=== PATIENT | male | born 1955 | race Caucasian/White ===

== ENCOUNTER 2016-11-04 17:28 | Inpatient (IN) | payer OTHER ==
[2016-11-04 17:52] LABS: Glucose,Whole Blood 206 mg/dL (75-99)
[2016-11-04] MEDS ORDERED: NALOXONE 0.4 MG/ML 1 ML VIAL IM STA (17:59)
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
--- NOTE | 2016-11-04 19:22 | CT ---
EXAMINATION TYPE: CT brain wo con DATE OF EXAM: 11/04/2016 7:09 PM HISTORY: Altered mental status. CT DLP: 1260.00 mGycm. Automated Exposure Control for Dose Reduction was Utilized. TECHNIQUE: CT scan of the head is performed without contrast. COMPARISON: None. FINDINGS: Some motion artifact seen making evaluation slightly suboptimal There is no acute intracra nial hemorrhage or midline shift identified. There is diffuse ventricular and sulcal prominence consi stent with diffuse age-related cerebral atrophy. Old infarcts inferior bilateral frontal lobes are no sandoval. There is small mucous retention cyst or polyp inferiorly in right maxillary sinus on axial image 2. The globes are intact and the visualized sinuses are otherwise clear. IMPRESSION: No acute intracranial hemorrhage or midline shift. There is mild diffuse age-related ce rebral atrophy and bilateral inferior old frontal lobe infarcts noted.
[2016-11-04] MEDS ORDERED: SODIUM CHLORIDE 0.9% 1,000 ML IV ONE ×2 (19:52→23:26)
[2016-11-04 20:35] LABS: Anisocytosis Slight; Aty Lym Flag Moderate; Basophils % (A) 0 %; CH 32.6; CHCM 33.9; Eosinophils % (A) 1 %; HCT 37.6 % (39.0-53.0); HDW 2.85; HGB 12.4 gm/dL (13.0-17.5); Luc # (Auto) 0.34; Luc % (Auto) 9; Lymphocytes # (A) 0.7 k/uL (1.0-4.8); Lymphocytes % (A) 17 %; MCH 31.9 pg (25.0-35.0); MCHC 32.9 g/dL (31.0-37.0); Macrocytosis Slight; Mean Platelet Volume 7.1; Monocytes # (A) 0.5 k/uL (0-1.0); Monocytes % (A) 12 %; Neutrophils # (A) 2.5 k/uL (1.3-7.7); Neutrophils % (A) 62 %; RBC 3.88 m/uL (4.30-5.90); RDW 16.5 % (11.5-15.5); WBC (Perox) 3.87
[2016-11-04 20:53] LABS: ALT 76 U/L (21-72); AST 168 U/L (17-59); Alcohol <10 mg/dL; Alkaline Phosphatase 154 U/L (38-126); Anion Gap 9 mmol/L; Blood Urea Nitrogen 32 mg/dL (9-20); Calcium 8.4 mg/dL (8.4-10.2); Carbon Dioxide 15 mmol/L (22-30); Chloride 113 mmol/L (98-107); Glucose 117 mg/dL (74-99); Non-African American GFR(MDRD) >60 (>60 ml/min/1.73 sqM); Sodium 137 mmol/L (137-145); Total Bilirubin 5.2 mg/dL (0.2-1.3); Total Protein 8.6 g/dL (6.3-8.2)
[2016-11-04 21:05] LABS: Manual Review Performed
[2016-11-04 21:06] LABS: Large Platelets Present
--- NOTE | 2016-11-04 21:11 | XR ---
EXAMINATION TYPE: XR chest 1V portable DATE OF EXAM: 11/04/2016 9:03 PM COMPARISON: NONE HISTORY: Chest pain. TECHNIQUE: Single AP portable frontal upright view of the chest is obtained. FINDINGS: There is chronic parenchymal change suspected with reticular opacities in both lower lungs . No suspicious focal airspace opacity, pleural effusion, or pneumothorax is seen. Patient is slightl y rotated to right of midline making evaluation suboptimal. The cardiac silhouette size is mildly enl arged. The osseous structures are intact. IMPRESSION: Mild cardiomegaly with reticular interstitial changes favored chronic, no suspicious foc al infiltrate.
[2016-11-04 23:21] LABS: Appearance,Urine Clear (Clear); Bilirubin,Urine Negative (Negative); Glucose,Urine (UA) Negative (Negative); Ketones,Urine Negative (Negative); Leukocyte Esterase,Urine Negative (Negative); Mucus,Urine Rare /hpf; Nitrite,Urine Negative (Negative); Particle Count 1800; Protein,Urine Negative (Negative); Specific Gravity,Urine 1.012 (1.001-1.035); UA Billing (MACRO vs. MICRO) MICRO; WBC,Urine <1 /hpf (0-5)
[2016-11-04] MEDS ORDERED: LACTULOSE 20 GM/30 ML CUP PO ONE (23:24)
[2016-11-04] MEDS ORDERED: LORazepam 2 MG/ML SYRINGE IV STA (23:33)
--- NOTE | 2016-11-04 23:34 | CT ---
EXAM: CT Abdomen and Pelvis Without Intravenous Contrast CLINICAL HISTORY: Reason: Pain TECHNIQUE: Axial computed tomography images of the abdomen and pelvis without intravenous contrast. CTDI is 18.70 mGy and DLP is 988.20 mGy-cm. This CT exam was performed using one or more of the following dose reduction techniques: automated exposure control, adjustment of the mA and/or kV according to patient size, and/or use of iterative reconstruction technique. COMPARISON: MRI lumbar spine 04/05/2016 FINDINGS: Lower thorax: Small hiatal hernia. ABDOMEN: Liver: The liver is diffusely nodular compatible with cirrhosis. Gallbladder and bile ducts: Gallbladder distention without calcified gallstones. Pancreas: Unremarkable. Spleen: Splenomegaly. Adrenals: Unremarkable. Kidneys and ureters: The right kidney is surgically absent. The left kidney is unremarkable without hydronephrosis. Stomach and bowel: Bowel is nondilated. Colonic diverticulosis without focal inflammatory change. Postsurgical changes are present in the right colon. Adjacent mild stranding is nonspecific and may postsurgical. No bowel wall thickening. Subcentimeter metallic foreign body in a loop of small bowel in the anterior abdomen is nonspecific (3- 111). Appendix: No findings to suggest acute appendicitis. PELVIS: Bladder: Unremarkable. No stones. Reproductive: Unremarkable as visualized. ABDOMEN and PELVIS: Intraperitoneal space: Unremarkable. No free air. Bones/joints: No acute osseous abnormality. Degenerative changes of the spine. Remote compression of L1. Soft tissues: Unremarkable. Vasculature: Evidence of portal venous hypertension, including portosystemic vascular collaterals. Atherosclerosis of the abdominal aorta without evidence of aneurysm. Lymph nodes: Unremarkable. No enlarged lymph nodes. IMPRESSION: Cirrhosis and stigmata of portal venous hypertension. Nonspecific subcentimeter metallic foreign body within a small bowel loop in the anterior abdomen, possibly a hemoclip. Consider clinical correlation or comparison with prior imaging, if available. No evidence of bowel obstruction, free fluid, or free air. Gallbladder distention without calcified gallstones. Right upper quadrant ultrasound may be considered for further characterization. Postsurgical changes are present in the right colon. Adjacent stranding is nonspecific and may be postsurgical.
[2016-11-04] MEDS ORDERED: LORazepam 2 MG/ML SYRINGE IV PRN (23:48)
[2016-11-04] MEDS ORDERED: ONDANSETRON 4 MG/2 ML VIAL IVP PRN (23:48)
[2016-11-04] MEDS ORDERED: NALOXONE 0.4 MG/ML 1 ML VIAL IV PRN (23:48)
[2016-11-05 00:25] VITALS: RESP 18
[2016-11-05 01:43] LABS: Glucose,Whole Blood 110 mg/dL (75-99)
[2016-11-05 01:47] VITALS: TEMP 97.5
[2016-11-05] MEDS: SODIUM CHLORIDE 0.9% 1,000 ML IV SCH ×4 (02:00→10:07)
[2016-11-05 08:16] VITALS: BP 142/65; PULSE 79
--- NOTE | 2016-11-05 08:42 | US ---
EXAMINATION TYPE: US gallbladder DATE OF EXAM: 11/05/2016 7:55 AM COMPARISON: CT abdomen and pelvis from yesterday. CLINICAL HISTORY: Pain. Hx renal CA, RK removed x few years ago. NPO. EXAM MEASUREMENTS: Liver Length: 19.9 cm Gallbladder Wall: 0.2 cm CBD: 0.8 cm CHD: 0.7 cm Pancreas: Obscured by bowel gas Liver: Enlarged, appears course Gallbladder: distended Evidence for sonographic Acevedo's sign: neg Right Kidney: Surgically absent Pancreas is suboptimally evaluated on images saved due to body habitus and shadowing from overlying b owel gas. Visualized liver is heterogeneous hyperechoic in appearance with lobulated cortex, findings correlate with recent CT. Evaluation for focal masses is suboptimal due to the heterogeneity. No obvious summer s are identified on images saved or recent CT. No intrahepatic ductal dilatation is seen. Gallbladder is dilated with distended margins, this correlates with recent CT. No shadowing mobile ga llstones, pericholecystic fluid collection, or abnormal gallbladder wall thickening is identified. Co mmon bile duct is mild to minimally dilated at 7 to 8 mm on ultrasound, is not suspiciously dilated o n recent CT. Right kidney is surgically absent. IMPRESSION: 1. Cirrhotic liver felt present given ultrasound and recent CT findings. Gallbladder findings most li eugene on basis of underlying liver disease.
[2016-11-05 08:44] LABS: ALT 61 U/L (21-72); AST 174 U/L (17-59); Alkaline Phosphatase 128 U/L (38-126); Anion Gap 8 mmol/L; Blood Urea Nitrogen 29 mg/dL (9-20); Calcium 8.3 mg/dL (8.4-10.2); Carbon Dioxide 14 mmol/L (22-30); Chloride 118 mmol/L (98-107); GGT 76 U/L (15-73); Glucose 94 mg/dL (74-99); Non-African American GFR(MDRD) >60 (>60 ml/min/1.73 sqM); Sodium 140 mmol/L (137-145); Total Bilirubin 5.5 mg/dL (0.2-1.3); Total Protein 8.3 g/dL (6.3-8.2)
[2016-11-05] MEDS ORDERED: NICOTINE 14MG/24HR PATCH TRANSDERM SCH (09:00)
[2016-11-05] MEDS ORDERED: PANTOPRAZOLE 40 MG/10 ML VIAL IV SCH (09:00)
[2016-11-05] MEDS ORDERED: LACTULOSE 20 GM/30 ML CUP PO SCH (09:00)
[2016-11-05 09:10] LABS: Potassium 4.9 mmol/L (3.5-5.1)
[2016-11-05 09:15] LABS: Hepatitis B Surface Ag Index 0.21
[2016-11-05 09:20] LABS: Hepatitis B Core IgM Index 0.05
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
[2016-11-05 10:43] VITALS: BMI 28.5
[2016-11-05 11:45] LABS: Iron 143 ug/dL (49-181)
[2016-11-05 11:54] LABS: % Iron Saturation 50.4 % (20-50); Total Iron Binding Capacity 284 ug/dL (261-462)
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
[2016-11-07 15:02] LABS: Hepatitis C Virus IgG Ab Reactive (Negative)
== END 2016-11-05 12:15 | disposition left against medical advice (07) | DRG 442 ==
LOC: EC 17:28 → 5MS5E 11-05 00:06
PROVIDERS: ADMIT Internal Medicine; ATTEND Internal Medicine
DX: K72.90 Hepatic failure, unspecified without coma (principal); K76.6 Portal hypertension; I10 Essential (primary) hypertension; B19.20 Unspecified viral hepatitis C without hepatic coma; F17.200 Nicotine dependence, unspecified, uncomplicated; K74.60 Unspecified cirrhosis of liver; Z85.528 Personal history of other malignant neoplasm of kidney; Z86.14 Personal history of Methicillin resistant Staphylococcus aureus infection; Z90.5 Acquired absence of kidney
CPT/HCPCS: 36415; 70450; 71010; 74176; 76705; 80053; 80074; 80306; 80320; 81001; 82105; 82140; 82728; 82977; 83516; 83540; 83550; 85025

== ENCOUNTER 2016-11-09 09:29 | Inpatient (IN) | payer OTHER ==
[2016-11-09] MEDS ORDERED: SODIUM CHLORIDE 0.9% 1,000 ML IV ONE (09:44)
--- NOTE | 2016-11-09 09:48 | ED ---
General Adult HPI - General Chief complaint: Altered Mental Status Stated complaint: Altered mental status Time Seen by Provider: 11/09/16 09:39 Source: patient, EMS, RN notes reviewed Mode of arrival: EMS Limitations: altered mental status - History of Present Illness Initial comments: Patient is a pleasant 61-year-old male presenting to the emergency department with reported concerns for altered mental status. Patient states he feels fine and has no complaints. Patient denies any drug use. EMS reports there were some drugs found. Patient denies alcohol use. Patient denies any physical complaints. Patient does not feel confused. Patient questioned why he does not know the year and states that must be normal for him. - Related Data Home Medications Medication Instructions Recorded Confirmed Docusate [Colace] 200 mg PO DAILY PRN 11/09/16 11/09/16 HYDROcodone/APAP 10-325MG [[place] 1 tab PO TID PRN 11/09/16 11/09/16 10-325] Lisinopril [Zestril] 20 mg PO DAILY 11/09/16 11/09/16 Morphine Sulfate ER [Ms Contin 100 mg PO Q12HR 11/09/16 11/09/16 100Mg] Sildenafil Citrate [Viagra] 50 mg PO ONCE PRN 11/09/16 11/09/16 amLODIPine [Norvasc] 5 mg PO DAILY 11/09/16 11/09/16 Allergies Allergy/AdvReac Type Severity Reaction Status Date / Time No Known Allergies Allergy Verified 11/09/16 09:46 Review of Systems ROS Statement: Those systems with pertinent positive or pertinent negative responses have been documented in the HPI. ROS Other: All systems not noted in ROS Statement are negative. Constitutional: Denies: fever Eyes: Denies: eye pain ENT: Denies: ear pain Respiratory: Denies: cough Cardiovascular: Denies: chest pain Endocrine: Denies: fatigue Gastrointestinal: Denies: abdominal pain Genitourinary: Denies: dysuria Musculoskeletal: Denies: back pain Skin: Denies: rash Neurological: Denies: weakness Past Medical History Past Medical History: Hypertension Additional Past Medical History / Comment(s): Renal Cancer, back pain, fractured back History of Any Multi-Drug Resistant Organisms: MRSA Date of last positivie culture/infection: 1999 MDRO Source:: leg Past Surgical History: Bowel Resection Additional Past Surgical History / Comment(s): Nephrectomy right, Past Psychological History: No Psychological Hx Reported Smoking Status: Current every day smoker Past Alcohol Use History: None Reported Past Drug Use History: None Reported General Exam Limitations: altered mental status General appearance: alert, in no apparent distress Head exam: Present: atraumatic Eye exam: Present: normal appearance, PERRL, EOMI. Absent: nystagmus ENT exam: Present: normal oropharynx Neck exam: Present: normal inspection. Absent: tenderness, meningismus Respiratory exam: Present: normal lung sounds bilaterally Cardiovascular Exam: Present: regular rate, normal rhythm GI/Abdominal exam: Present: soft. Absent: distended, tenderness Extremities exam: Present: normal inspection Neurological exam: Present: alert, altered, CN II-XII intact. Absent: motor sensory deficit Expanded Patient oriented to: Present: person, place. Absent: time (States the year is 1916) Cranial nerves: EOM's Intact: Normal Motor strength exam: RUE: 5, LUE: 5, RLE: 5, LLE: 5 Psychiatric exam: Present: normal affect, normal mood Skin exam: Present: normal color Course Vital Signs 11/09/16 11/09/16 09:39 11:38 Temperature 96.9 F L Pulse Rate 90 77 Respiratory 12 18 Rate Blood Pressure 197/92 165/84 O2 Sat by Pulse 100 99 Oximetry EKG Findings - EKG Comments: EKG Findings:: Normal sinus rhythm at 85. OK 134. QRS 84. QT 400. QTc 476. Normal axis. LVH criteria. Nonspecific ST-T. Medical Decision Making - Medical Decision Making Patient reevaluated and unchanged. Patient updated on results and plan. Case was discussed with Dr. fletcher, who will admit for Dr. Figueroa - Lab Data Result diagrams: 11/09/16 10:46 11/09/16 10:46 Lab Results 11/09/16 11/09/16 11/09/16 Range/Units 09:59 10:46 10:46 WBC 2.5 L (3.8-10.6) k/uL RBC 3.98 L (4.30-5.90) m/uL Hgb 13.2 (13.0-17.5) gm/dL Hct 38.4 L (39.0-53.0) % MCV 96.5 (80.0-100.0) fL MCH 33.1 (25.0-35.0) pg MCHC 34.3 (31.0-37.0) g/dL RDW 16.5 H (11.5-15.5) % Plt Count 79 L (150-450) k/uL Neutrophils % (Manual) 61.0 % Band Neutrophils % 3.0 % Lymphocytes % (Manual) 26.0 % Monocytes % (Manual) 10.0 % Neutrophils # (Manual) 1.6 (1.3-7.7) k/uL Lymphocytes # (Manual) 0.7 L (1.0-4.8) k/uL Monocytes # (Manual) 0.3 (0-1.0) k/uL Nucleated RBCs 0 (0-0) /100 WBC Manual Slide Review Performed Poikilocytosis (manual Present Anisocytosis Slight PT 13.1 H (9.0-12.0) sec INR 1.3 (<1.1) APTT 21.6 L (22.0-30.0) sec Sodium (137-145) mmol/L Potassium (3.5-5.1) mmol/L Chloride (98-107) mmol/L Carbon Dioxide (22-30) mmol/L Anion Gap mmol/L BUN (9-20) mg/dL Creatinine (0.66-1.25) mg/dL Est GFR (MDRD) Af Amer (>60 ml/min/1.73 sqM) Est GFR (MDRD) Non-Af (>60 ml/min/1.73 sqM) Glucose (74-99) mg/dL POC Glucose (mg/dL) 119 H (75-99) mg/dL POC Glu Linen Checker ID [email or web address] Kiya Calcium (8.4-10.2) mg/dL Total Bilirubin (0.2-1.3) mg/dL AST (17-59) U/L ALT (21-72) U/L Alkaline Phosphatase (38-126) U/L Ammonia (<30) umol/L Total Creatine Kinase (55-170) U/L CK-MB (CK-2) (0.0-2.4) ng/mL CK-MB (CK-2) Rel Index Troponin I (0.000-0.034) ng/mL Total Protein (6.3-8.2) g/dL Albumin (3.5-5.0) g/dL Urine Color Urine Appearance (Clear) Urine pH (5.0-8.0) Ur Specific Schuyler (1.001-1.035) Urine Protein (Negative) Urine Glucose (UA) (Negative) Urine Ketones (Negative) Urine Blood (Negative) Urine Nitrite (Negative) Urine Bilirubin (Negative) Urine Urobilinogen (<2.0) mg/dL Ur Leukocyte Esterase (Negative) Urine Opiates Screen (NotDetected) Ur Oxycodone Screen (NotDetected) Urine Methadone Screen (NotDetected) Ur Propoxyphene Screen (NotDetected) Ur Barbiturates Screen (NotDetected) U Tricyclic Antidepress (NotDetected) Ur Phencyclidine Scrn (NotDetected) Ur Amphetamines Screen (NotDetected) U Methamphetamines Scrn (NotDetected) U Benzodiazepines Scrn (NotDetected) Urine Cocaine Screen (NotDetected) U Marijuana (THC) Screen (NotDetected) 11/09/16 11/09/16 11/09/16 Range/Units 10:46 10:46 10:46 WBC (3.8-10.6) k/uL RBC (4.30-5.90) m/uL Hgb (13.0-17.5) gm/dL Hct (39.0-53.0) % MCV (80.0-100.0) fL MCH (25.0-35.0) pg MCHC (31.0-37.0) g/dL RDW (11.5-15.5) % Plt Count (150-450) k/uL Neutrophils % (Manual) % Band Neutrophils % % Lymphocytes % (Manual) % Monocytes % (Manual) % Neutrophils # (Manual) (1.3-7.7) k/uL Lymphocytes # (Manual) (1.0-4.8) k/uL Monocytes # (Manual) (0-1.0) k/uL Nucleated RBCs (0-0) /100 WBC Manual Slide Review Poikilocytosis (manual Anisocytosis PT (9.0-12.0) sec INR (<1.1) APTT (22.0-30.0) sec Sodium 143 (137-145) mmol/L Potassium 4.5 (3.5-5.1) mmol/L Chloride 118 H (98-107) mmol/L Carbon Dioxide 12 L (22-30) mmol/L Anion Gap 13 mmol/L BUN 34 H (9-20) mg/dL Creatinine 1.35 H (0.66-1.25) mg/dL Est GFR (MDRD) Af Amer >60 (>60 ml/min/1.73 sqM) Est GFR (MDRD) Non-Af 54 (>60 ml/min/1.73 sqM) Glucose 125 H (74-99) mg/dL POC Glucose (mg/dL) (75-99) mg/dL POC Glu Linen Checker ID Calcium 8.6 (8.4-10.2) mg/dL Total Bilirubin 5.8 H (0.2-1.3) mg/dL AST 152 H (17-59) U/L ALT 71 (21-72) U/L Alkaline Phosphatase 178 H (38-126) U/L Ammonia 78 H (<30) umol/L Total Creatine Kinase 201 H (55-170) U/L CK-MB (CK-2) 2.8 H* (0.0-2.4) ng/mL CK-MB (CK-2) Rel Index 1.4 Troponin I 0.014 (0.000-0.034) ng/mL Total Protein 9.2 H (6.3-8.2) g/dL Albumin 3.5 (3.5-5.0) g/dL Urine Color Urine Appearance (Clear) Urine pH (5.0-8.0) Ur Specific Schuyler (1.001-1.035) Urine Protein (Negative) Urine Glucose (UA) (Negative) Urine Ketones (Negative) Urine Blood (Negative) Urine Nitrite (Negative) Urine Bilirubin (Negative) Urine Urobilinogen (<2.0) mg/dL Ur Leukocyte Esterase (Negative) Urine Opiates Screen (NotDetected) Ur Oxycodone Screen (NotDetected) Urine Methadone Screen (NotDetected) Ur Propoxyphene Screen (NotDetected) Ur Barbiturates Screen (NotDetected) U Tricyclic Antidepress (NotDetected) Ur Phencyclidine Scrn (NotDetected) Ur Amphetamines Screen (NotDetected) U Methamphetamines Scrn (NotDetected) U Benzodiazepines Scrn (NotDetected) Urine Cocaine Screen (NotDetected) U Marijuana (THC) Screen (NotDetected) 11/09/16 Range/Units 11:25 WBC (3.8-10.6) k/uL RBC (4.30-5.90) m/uL Hgb (13.0-17.5) gm/dL Hct (39.0-53.0) % MCV (80.0-100.0) fL MCH (25.0-35.0) pg MCHC (31.0-37.0) g/dL RDW (11.5-15.5) % Plt Count (150-450) k/uL Neutrophils % (Manual) % Band Neutrophils % % Lymphocytes % (Manual) % Monocytes % (Manual) % Neutrophils # (Manual) (1.3-7.7) k/uL Lymphocytes # (Manual) (1.0-4.8) k/uL Monocytes # (Manual) (0-1.0) k/uL Nucleated RBCs (0-0) /100 WBC Manual Slide Review Poikilocytosis (manual Anisocytosis PT (9.0-12.0) sec INR (<1.1) APTT (22.0-30.0) sec Sodium (137-145) mmol/L Potassium (3.5-5.1) mmol/L Chloride (98-107) mmol/L Carbon Dioxide (22-30) mmol/L Anion Gap mmol/L BUN (9-20) mg/dL Creatinine (0.66-1.25) mg/dL Est GFR (MDRD) Af Amer (>60 ml/min/1.73 sqM) Est GFR (MDRD) Non-Af (>60 ml/min/1.73 sqM) Glucose (74-99) mg/dL POC Glucose (mg/dL) (75-99) mg/dL POC Glu Linen Checker ID Calcium (8.4-10.2) mg/dL Total Bilirubin (0.2-1.3) mg/dL AST (17-59) U/L ALT (21-72) U/L Alkaline Phosphatase (38-126) U/L Ammonia (<30) umol/L Total Creatine Kinase (55-170) U/L CK-MB (CK-2) (0.0-2.4) ng/mL CK-MB (CK-2) Rel Index Troponin I (0.000-0.034) ng/mL Total Protein (6.3-8.2) g/dL Albumin (3.5-5.0) g/dL Urine Color Yellow Urine Appearance Clear (Clear) Urine pH 5.0 (5.0-8.0) Ur Specific Schuyler 1.014 (1.001-1.035) Urine Protein Negative (Negative) Urine Glucose (UA) Negative (Negative) Urine Ketones Negative (Negative) Urine Blood Negative (Negative) Urine Nitrite Negative (Negative) Urine Bilirubin Negative (Negative) Urine Urobilinogen 3.0 (<2.0) mg/dL Ur Leukocyte Esterase Negative (Negative) Urine Opiates Screen Detected H (NotDetected) Ur Oxycodone Screen Not Detected (NotDetected) Urine Methadone Screen Not Detected (NotDetected) Ur Propoxyphene Screen Not Detected (NotDetected) Ur Barbiturates Screen Not Detected (NotDetected) U Tricyclic Antidepress Not Detected (NotDetected) Ur Phencyclidine Scrn Not Detected (NotDetected) Ur Amphetamines Screen Not Detected (NotDetected) U Methamphetamines Scrn Not Detected (NotDetected) U Benzodiazepines Scrn Detected H (NotDetected) Urine Cocaine Screen Not Detected (NotDetected) U Marijuana (THC) Screen Not Detected (NotDetected) - Radiology Data Radiology results: report reviewed (Computed tomography scan of the brain shows os traumatic encephalomalacia. No acute intercranial process.), image reviewed (Chest x-ray shows no acute process) Disposition Clinical Impression: Hepatic encephalopathy syndrome Disposition: ADMITTED IP TO THIS HOSP Referrals: Noah Ozuna DO [Primary Care Provider] - 1-2 days Time of Disposition: 12:01
[2016-11-09 10:00] LABS: Glucose,Whole Blood 119 mg/dL (75-99)
[2016-11-09 10:49] LABS: Anisocytosis Slight; Aty Lym Flag Slight; CHCM 33.4; HCT 38.4 % (39.0-53.0); HGB 13.2 gm/dL (13.0-17.5); MCH 33.1 pg (25.0-35.0); MCHC 34.3 g/dL (31.0-37.0); MCV 96.5 fL (80.0-100.0); Mean Platelet Volume 7.2; RBC 3.98 m/uL (4.30-5.90); RDW 16.5 % (11.5-15.5); WBC 2.5 k/uL (3.8-10.6); WBC (Perox) 2.53
[2016-11-09 11:01] LABS: Add Differential Manual Differential
[2016-11-09 11:04] LABS: Manual Review Performed; Nucleated Red Blood Cells 0 /100 WBC (0-0); Total Cells Counted 100
[2016-11-09 11:06] LABS: INR 1.3 (<1.1); Prothrombin Time 13.1 sec (9.0-12.0)
[2016-11-09 11:07] LABS: Partial Thromboplastin Time 21.6 sec (22.0-30.0)
[2016-11-09 11:16] LABS: ALT 71 U/L (21-72); AST 152 U/L (17-59); Alkaline Phosphatase 178 U/L (38-126); Anion Gap 13 mmol/L; Blood Urea Nitrogen 34 mg/dL (9-20); Calcium 8.6 mg/dL (8.4-10.2); Carbon Dioxide 12 mmol/L (22-30); Chloride 118 mmol/L (98-107); Glucose 125 mg/dL (74-99); Non-African American GFR(MDRD) 54 (>60 ml/min/1.73 sqM); Potassium 4.5 mmol/L (3.5-5.1); Sodium 143 mmol/L (137-145); Total Bilirubin 5.8 mg/dL (0.2-1.3); Total Protein 9.2 g/dL (6.3-8.2)
--- NOTE | 2016-11-09 11:19 | CT ---
EXAMINATION TYPE: CT brain wo con DATE OF EXAM: 11/09/2016 10:20 AM COMPARISON: 11/04/2016 INDICATION: altered mental status DLP: 1028.7 mGycm, Automated exposure control for dose reduction was used. CONTRAST: None CT of the brain is performed utilizing 3 mm thick sections through the posterior fossa and 3 mm thick sections through the remaining calvarium. Study is performed within 24 hours of arrival to the hosp ital. No abnormal hyperdensity is present to suggest an acute intracranial hemorrhage. No mass lesion is evident. No acute infarcts are evident. There is hypodensity within the inferior frontal lobes bilaterally whi ch can be compatible posttraumatic encephalomalacia. This would be chronic. Ventricles and sulci are appropriate for the patient age. Paranasal sinuses and mastoid air cells within the [id number]-bliy are clear. IMPRESSIONS: 1. Posttraumatic encephalomalacia inferior frontal lobes. 2. No acute intracranial process.
[2016-11-09 11:22] LABS: Troponin I 0.014 ng/mL (0.000-0.034)
--- NOTE | 2016-11-09 11:22 | XR ---
EXAMINATION TYPE: XR chest 2V DATE OF EXAM: 11/09/2016 10:24 AM COMPARISON: 11/04/2016 INDICATION: Altered mental status TECHNIQUE: 2 view chest FINDINGS: The heart size is normal. The pulmonary vasculature is normal. The lungs are clear. IMPRESSION: 1. No acute pulmonary process.
[2016-11-09 11:29] LABS: Creatine Kinase MB 2.8 ng/mL (0.0-2.4)
[2016-11-09 11:30] LABS: Appearance,Urine Clear (Clear); Bilirubin,Urine Negative (Negative); Glucose,Urine (UA) Negative (Negative); Ketones,Urine Negative (Negative); Leukocyte Esterase,Urine Negative (Negative); Nitrite,Urine Negative (Negative); Protein,Urine Negative (Negative); Specific Gravity,Urine 1.014 (1.001-1.035); UA Billing (MACRO vs. MICRO) CHEM
[2016-11-09] MEDS ORDERED: NALOXONE 0.4 MG/ML 1 ML VIAL IV PRN (12:02)
[2016-11-09] MEDS ORDERED: SODIUM CHLORIDE 0.9% 1,000 ML IV SCH (12:15)
[2016-11-09] MEDS ORDERED: LACTULOSE 20 GM/30 ML CUP PO STA (12:17)
[2016-11-09 14:47] VITALS: BMI 28.2
[2016-11-09] MEDS ORDERED: DOCUSATE 100 MG CAP PO PRN (15:50)
[2016-11-09] MEDS ORDERED: SODIUM CHLORIDE 0.9% 1,000 ML IV STA (19:08)
[2016-11-09] MEDS: LACTULOSE 20 GM/30 ML CUP PO SCH (21:07)
[2016-11-09] MEDS: SODIUM BICARBONATE TAB 650 MG TAB PO SCH (21:07)
--- NOTE | 2016-11-09 21:23 | HP ---
DATE OF ADMISSION: 11/09/2016 CHIEF COMPLAINT: Change in mental status. HISTORY OF PRESENT ILLNESS: This is a 61-year-old gentleman who recently left AGAINST MEDICAL ADVICE on 11/05 when admitted for change in mental status. Comes into the hospital with altered mental status reported by his mother. Patient was triaged to the emergency room via EMS apparently multiple drugs were found, unsure what drugs were found according to the ER note. Patient appears to be drowsy. Answers some questions appropriately, however, is not able to hold a conversation. Ammonia level was noted to be at 75. Patient is also noted to have an acute kidney injury. Drug screen positive for opiates and benzodiazepines. REVIEW OF SYSTEMS: Deferred due to patient's clinical condition. MEDICATIONS: Include: 1. [place]. 2. Amlodipine. 3. Viagra. 4. [place] Contin. 5. Colace. 6. Lisinopril. Those were reviewed and appropriately reconciled. ALLERGIES: No known drug allergies. Past medical history includes hypertension, renal cancer and back pain, hepatitis C infection. PAST SURGICAL HISTORY: Bowel resection and right nephrectomy. SOCIAL HISTORY: Daily smoker. Lives with his mother. Denies alcohol use, denies drug use; however, drug screen positive. FAMILY HISTORY: Not pertinent to current admission. PHYSICAL EXAM: VITALS: Temperature 96.9, heart rate is 90, respiratory rate 12, blood pressure 197/92 was on admission. Thereafter 160/85. Saturating 99% on room air. GENERAL APPEARANCE: Appears to be drowsy, however, arousable. Does not answer questions appropriately. NECK: Supple. No JVD. LUNGS: Diminished breath sounds. No wheezing nor crackles appreciated. HEART: S1, S2 are regular rate and rhythm. No murmurs appreciated. ABDOMEN: Soft, nontender, no dullness noted. NEURO: Moves all 4 extremities and drowsy. Deferred detailed examination due to the patient's clinical status. No significant icterus is noted on skin examination. Laboratory data include hemoglobin of 13.2, hematocrit 38.4, white count 2.5, platelets of 79. Sodium 143, potassium 4.4, chloride 118, bicarb 12. BUN 34, creatinine of 1.35. ASSESSMENT AND PLAN: 1. Acute toxic encephalopathy. 2. Acute non- anion gap acidosis due to kidney dysfunction. 3. Acute kidney injury likely prerenal in nature. 4. Hyperammonemia. 5. Hepatitis C infection. 6. Decompensated liver cirrhosis. 7. Thrombocytopenia. 8. Polysubstance use. 9. Hypertension. 10. Chronic low back pain. 11. Renal cell cancer, status post right nephrectomy. PLAN: Continue IV fluid resuscitation. We will start the patient on sodium bicarb 650 mg t.i.d. Repeat labs in the a.m. This does not appear to be secondary to hyperammonemia clinically. Continue with lactulose. Will follow.
[2016-11-09] MEDS ORDERED: LORazepam 0.5 MG TAB PO PRN (21:51)
[2016-11-10 08:13] VITALS: BP 132/79; PULSE 77; RESP 16; TEMP 97.9
[2016-11-10] MEDS: SODIUM BICARBONATE TAB 650 MG TAB PO SCH (08:25)
[2016-11-10] MEDS: LACTULOSE 20 GM/30 ML CUP PO SCH (08:25)
[2016-11-10 08:59] LABS: ALT 75 U/L (21-72); AST 151 U/L (17-59); Alkaline Phosphatase 143 U/L (38-126); Anion Gap 8 mmol/L; Bilirubin, Delta 2.5 mg/dL (0.0-0.2); Blood Urea Nitrogen 28 mg/dL (9-20); Calcium 8.6 mg/dL (8.4-10.2); Carbon Dioxide 16 mmol/L (22-30); Chloride 117 mmol/L (98-107); Glucose 96 mg/dL (74-99); Magnesium 1.7 mg/dL (1.6-2.3); Non-African American GFR(MDRD) >60 (>60 ml/min/1.73 sqM); Phosphorous 3.4 mg/dL (2.5-4.5); Potassium 4.8 mmol/L (3.5-5.1); Sodium 141 mmol/L (137-145); Total Bilirubin 5.2 mg/dL (0.2-1.3)
[2016-11-10] MEDS ORDERED: amLODIPine 5 MG TAB PO SCH ×2 (09:00)
[2016-11-10] MEDS ORDERED: LISINOPRIL 20 MG TAB PO SCH (09:00)
[2016-11-10 10:54] LABS: Anisocytosis Slight; Aty Lym Flag Moderate; CHCM 33.6; HCT 36.4 % (39.0-53.0); HDW 2.93; HGB 12.1 gm/dL (13.0-17.5); MCH 32.1 pg (25.0-35.0); MCHC 33.4 g/dL (31.0-37.0); Mean Platelet Volume 6.7; RBC 3.79 m/uL (4.30-5.90); RDW 16.4 % (11.5-15.5); WBC 2.1 k/uL (3.8-10.6)
[2016-11-10 12:07] LABS: Add Differential Manual Differential
[2016-11-10 12:12] LABS: Manual Review Performed; Nucleated Red Blood Cells 0 /100 WBC (0-0); Total Cells Counted 100
--- NOTE | 2016-11-10 12:20 | P.CONS ---
History of Present Illness - Reason for Consult Consult date: 11/09/16 - History of Present Illness The patient is a 61-year-old gentleman with history of renal carcinoma/right nephrectomy, nicotine cigarette dependency, and hypertension. Patient was recently admitted with mental status changes, lethargy and sleepiness and has left against medical advise yesterday. The patient was brought back to the emergency room by his mother because of mental changes. His ammonia level remained elevated essentially unchanged from when he left the hospital. History obtained from nursing staff and his medical records as he is quite drowsy and unreliable for history. CT abdomen and pelvis earlier in the week reported small nodular liver consistent with cirrhosis and portal hypertension. Brain CT no acute intracranial hemorrhage or midline shift. Ultrasound gallbladder reported cirrhotic liver, liver length 19.9 cm. CBD 0.8 cm. No obvious liver masses. Gallbladder dilated with distended margins. No gallstones pericholecystic fluid or wall thickening. No biliary ductal dilation. Patient was noted by EMS to be taking some medications and his urine tested positive for benzodiazepines and the narcotics. Review of Systems No reliable information as the patient is drowsy and confused. Past Medical History Past Medical History: Hypertension Additional Past Medical History / Comment(s): Renal Cancer, back pain, fractured back History of Any Multi-Drug Resistant Organisms: MRSA Year Discovered:: 1999 MDRO Source:: leg Past Surgical History: Bowel Resection Additional Past Surgical History / Comment(s): Nephrectomy right, Past Psychological History: No Psychological Hx Reported Smoking Status: Current every day smoker Past Alcohol Use History: None Reported Additional Past Alcohol Use History / Comment(s): has ETOH history Past Drug Use History: None Reported Medications and Allergies Home Medications Medication Instructions Recorded Confirmed Type Docusate [Colace] 200 mg PO DAILY PRN 11/09/16 11/09/16 History HYDROcodone/APAP 10-325MG [[place] 1 tab PO TID PRN 11/09/16 11/09/16 History 10-325] Lisinopril [Zestril] 20 mg PO DAILY 11/09/16 11/09/16 History Morphine Sulfate ER [Ms Contin] 100 mg PO Q12HR 11/09/16 11/09/16 History Sildenafil Citrate [Viagra] 50 mg PO ONCE PRN 11/09/16 11/09/16 History amLODIPine [Norvasc] 5 mg PO DAILY 11/09/16 11/09/16 History Allergies Allergy/AdvReac Type Severity Reaction Status Date / Time No Known Allergies Allergy Verified 11/09/16 09:46 Physical Exam Vitals: Vital Signs Temp Pulse Pulse Resp BP BP Pulse Ox 11/09/16 15:07 16 11/09/16 15:00 97.7 F 81 20 169/85 97 11/09/16 13:51 97.2 F L 80 16 142/76 97 11/09/16 12:43 97.2 F L 82 16 183/84 99 11/09/16 11:38 77 18 165/84 99 11/09/16 09:39 96.9 F L 90 12 197/92 100 Intake and Output 11/09/16 11/09/16 11/09/16 06:59 14:59 22:59 Other: Voiding Method Urinal Weight 99.79 kg 99.79 kg Patient Weight 11/10/16 06:59 Weight 99.79 kg General: Appears the stated age drowsy/confused in no acute distress Head and neck: Normocephalic and atraumatic, conjunctivae pink sclerae muddy. No masses in the neck or tracheal shifts. Mucous membranes somewhat dry Lungs: Clear to auscultation with no dullness to percussion Heart: Regular with no abnormal sounds, murmurs, gallops or friction rubs Abdomen: Soft with no masses, tenderness or organomegalies appreciated. No definite shifting dullness Extremities: 1+ pitting PT been impeded edema Neurologic: Confused but moving all extremities. Results CBC & Chem 7: 11/10/16 10:40 11/10/16 07:40 Labs: Abnormal Lab Results - Last 24 Hours (Table) 11/09/16 11/09/16 11/09/16 Range/Units 09:59 10:46 10:46 WBC 2.5 L (3.8-10.6) k/uL RBC 3.98 L (4.30-5.90) m/uL Hct 38.4 L (39.0-53.0) % RDW 16.5 H (11.5-15.5) % Plt Count 79 L (150-450) k/uL Lymphocytes # (Manual) 0.7 L (1.0-4.8) k/uL PT 13.1 H (9.0-12.0) sec APTT 21.6 L (22.0-30.0) sec Chloride (98-107) mmol/L Carbon Dioxide (22-30) mmol/L BUN (9-20) mg/dL Creatinine (0.66-1.25) mg/dL Glucose (74-99) mg/dL POC Glucose (mg/dL) 119 H (75-99) mg/dL Total Bilirubin (0.2-1.3) mg/dL AST (17-59) U/L Alkaline Phosphatase (38-126) U/L Ammonia (<30) umol/L Total Creatine Kinase (55-170) U/L CK-MB (CK-2) (0.0-2.4) ng/mL Total Protein (6.3-8.2) g/dL Urine Opiates Screen (NotDetected) U Benzodiazepines Scrn (NotDetected) 11/09/16 11/09/16 11/09/16 Range/Units 10:46 10:46 10:46 WBC (3.8-10.6) k/uL RBC (4.30-5.90) m/uL Hct (39.0-53.0) % RDW (11.5-15.5) % Plt Count (150-450) k/uL Lymphocytes # (Manual) (1.0-4.8) k/uL PT (9.0-12.0) sec APTT (22.0-30.0) sec Chloride 118 H (98-107) mmol/L Carbon Dioxide 12 L (22-30) mmol/L BUN 34 H (9-20) mg/dL Creatinine 1.35 H (0.66-1.25) mg/dL Glucose 125 H (74-99) mg/dL POC Glucose (mg/dL) (75-99) mg/dL Total Bilirubin 5.8 H (0.2-1.3) mg/dL AST 152 H (17-59) U/L Alkaline Phosphatase 178 H (38-126) U/L Ammonia 78 H (<30) umol/L Total Creatine Kinase 201 H (55-170) U/L CK-MB (CK-2) 2.8 H* (0.0-2.4) ng/mL Total Protein 9.2 H (6.3-8.2) g/dL Urine Opiates Screen (NotDetected) U Benzodiazepines Scrn (NotDetected) 11/09/16 11/09/16 Range/Units 11:25 16:06 WBC (3.8-10.6) k/uL RBC (4.30-5.90) m/uL Hct (39.0-53.0) % RDW (11.5-15.5) % Plt Count (150-450) k/uL Lymphocytes # (Manual) (1.0-4.8) k/uL PT (9.0-12.0) sec APTT (22.0-30.0) sec Chloride (98-107) mmol/L Carbon Dioxide (22-30) mmol/L BUN (9-20) mg/dL Creatinine (0.66-1.25) mg/dL Glucose (74-99) mg/dL POC Glucose (mg/dL) (75-99) mg/dL Total Bilirubin (0.2-1.3) mg/dL AST (17-59) U/L Alkaline Phosphatase (38-126) U/L Ammonia 75 H (<30) umol/L Total Creatine Kinase (55-170) U/L CK-MB (CK-2) (0.0-2.4) ng/mL Total Protein (6.3-8.2) g/dL Urine Opiates Screen Detected H (NotDetected) U Benzodiazepines Scrn Detected H (NotDetected) Assessment and Plan Plan: 61-year-old male with cirrhosis of the liver presenting with a picture of encephalopathy, possibly related to his elevated ammonia as well as a component of toxic encephalopathy from medications. I agree with your management and the supportive care he is receiving. Will continue lactulose. Further plans based on his course and biopsy results. We will follow with you with interest.
[2016-11-10 14:15] LABS: Vitamin B12 803 pg/mL (239-931)
--- NOTE | 2016-11-10 18:19 | P.DS ---
Providers Date of admission: 11/09/16 12:03 Attending physician: Betty Gonsales Consults: 11/09/16 12:02 Consult Physician Urgent Consulting Provider: Can Perez Consult Reason/Comments: Hepatic encephalopathy Do you want consulting provider notified?: Yes [facility] Course: CHIEF COMPLAINT: Change in mental status. HISTORY OF PRESENT ILLNESS: This is a 61-year-old gentleman who recently left AGAINST MEDICAL ADVICE on 11/05 when admitted for change in mental status. Comes into the hospital with altered mental status reported by his mother. Patient was triaged to the emergency room via EMS apparently multiple drugs were found, unsure what drugs were found according to the ER note. Patient appears to be drowsy. Answers some questions appropriately, however, is not able to hold a conversation. Ammonia level was noted to be at 75. Patient is also noted to have an acute kidney injury. Drug screen positive for opiates and benzodiazepines. 11/10/16 doing wll awake alert oriented times 3 was able to ambulate without much difficulty PHYSICAL EXAM: GENERAL APPEARANCE: Appears to be drowsy, however, arousable. Does not answer questions appropriately. NECK: Supple. No JVD. LUNGS: Diminished breath sounds. No wheezing nor crackles appreciated. HEART: S1, S2 are regular rate and rhythm. No murmurs appreciated. ABDOMEN: Soft, nontender, no dullness noted. NEURO: Moves all 4 extremities and drowsy. Deferred detailed examination due to the patient's clinical status. No significant icterus is noted on skin examination. Laboratory data include hemoglobin of 13.2, hematocrit 38.4, white count 2.5, platelets of 79. Sodium 143, potassium 4.4, chloride 118, bicarb 12. BUN 34, creatinine of 1.35. ASSESSMENT AND PLAN: 1. Acute toxic encephalopathy. 2. Acute non- anion gap acidosis due to kidney dysfunction. , improving 3. Acute kidney injury likely prerenal in nature. 4. Hyperammonemia. 5. Hepatitis C infection. 6. Decompensated liver cirrhosis. 7. Thrombocytopenia. 8. Polysubstance use. 9. Hypertension. 10. Chronic low back pain. 11. Renal cell cancer, status post right nephrectomy. discussed cessation of polysubstance use [facility]. lactulose to titrate 3 -4 bms daily Plan - Discharge Summary New Discharge Prescriptions: RX: Lactulose [Cephulac] 30 gm PO BID #10 dose RX: Sodium Bicarbonate 325 mg PO TID #30 tablet Discharge Medication List RX: Docusate [Colace] 200 mg PO DAILY PRN 11/09/16 [History] RX: HYDROcodone/APAP 10-325MG [[place] 10-325] 1 tab PO TID PRN 11/09/16 [History] RX: Lisinopril [Zestril] 20 mg PO DAILY 11/09/16 [History] RX: Morphine Sulfate ER [Ms Contin] 100 mg PO Q12HR 11/09/16 [History] RX: Sildenafil Citrate [Viagra] 50 mg PO ONCE PRN 11/09/16 [History] RX: amLODIPine [Norvasc] 5 mg PO DAILY 11/09/16 [History] RX: Lactulose [Cephulac] 30 gm PO BID #10 dose 11/10/16 [Rx] RX: Sodium Bicarbonate 325 mg PO TID #30 tablet 11/10/16 [Rx] Follow up Appointment(s)/Referral(s): Noah Ozuna DO [Primary Care Provider] - 11/19/16 2:30 pm () Patient Instructions/Handouts: Lactulose (By mouth), Sodium Bicarbonate (By mouth), Cirrhosis (DC) Discharge Disposition: HOME SELF-CARE
== END 2016-11-10 12:14 | disposition home or self-care (01) | DRG 92 ==
LOC: EC 09:29 → 5MS5E 12:03
PROVIDERS: ADMIT Internal Medicine; ATTEND Internal Medicine
DX: G92 Toxic encephalopathy (principal); N17.9 Acute kidney failure, unspecified; E87.2 Acidosis; E72.20 Disorder of urea cycle metabolism, unspecified; K76.6 Portal hypertension; D69.6 Thrombocytopenia, unspecified; F19.988 Other psychoactive substance use, unspecified with other psychoactive substance-induced disorder; K72.90 Hepatic failure, unspecified without coma; R90.89 Other abnormal findings on diagnostic imaging of central nervous system; F17.210 Nicotine dependence, cigarettes, uncomplicated; K74.60 Unspecified cirrhosis of liver; B19.20 Unspecified viral hepatitis C without hepatic coma; I10 Essential (primary) hypertension; M54.5 Low back pain; G89.29 Other chronic pain; Z90.5 Acquired absence of kidney; Z79.899 Other long term (current) drug therapy; Z85.528 Personal history of other malignant neoplasm of kidney; Z79.891 Long term (current) use of opiate analgesic; Z90.49 Acquired absence of other specified parts of digestive tract; Z87.81 Personal history of (healed) traumatic fracture; Z86.14 Personal history of Methicillin resistant Staphylococcus aureus infection; Z91.19 Patient's noncompliance with other medical treatment and regimen; Z71.51 Drug abuse counseling and surveillance of drug abuser
CPT/HCPCS: 36415; 70450; 71020; 80053; 80306; 80320; 81003; 82140; 82248; 82550; 82553; 82607; 83735; 84100; 84484; 85025; 85610; 85730; 93005; 94760; 96360; 96361; 99285

== ENCOUNTER → 2017-02-24 | Outpatient (CLI) | payer OTHER | END | disposition home or self-care (01) | LOC: LABWHC1 15:57 | DX: Z02.83 Encounter for blood-alcohol and blood-drug test (principal) | CPT/HCPCS: 36415 ==